=== PATIENT | male | born 1960 | race Caucasian/White ===

== ENCOUNTER → 2020-11-25 | Outpatient (CLI) | payer MEDICARE, BC ==
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
== END | disposition home or self-care (01) ==
LOC: RADXRYALE 14:34
PROVIDERS: ATTEND Physician Assistant Medical
DX: M79.644 Pain in right finger(s) (principal)

== ENCOUNTER → 2021-12-10 | Outpatient (CLI) | payer MEDICARE, BC ==
--- NOTE | 2021-12-11 08:26 | XR ---
EXAMINATION TYPE: XR abdomen 2V DATE OF EXAM: 12/10/2021 COMPARISON: NONE HISTORY: Pain TECHNIQUE: Single supine KUB image of the abdomen is obtained FINDINGS: Small bowel demonstrates no evidence for dilatation or air fluid levels. Gas and fecal material is seen in non-distended colon. No convincing evidence for pneumoperitoneum. No unusual calcifications. The lung bases are clear. The osseous structures are intact. IMPRESSION: 1. Overall nonobstructive bowel gas pattern.
== END | disposition home or self-care (01) ==
LOC: RADXRYALE 16:27
PROVIDERS: ATTEND Family Medicine
DX: R10.84 Generalized abdominal pain (principal)
CPT/HCPCS: 74019

== ENCOUNTER → 2022-01-31 | Outpatient (CLI) | payer MEDICARE ==
--- NOTE | 2022-01-31 19:41 | BD ---
EXAMINATION TYPE: Axial Bone Density DATE OF EXAM: 01/31/2022 COMPARISON: NONE CLINICAL HISTORY: 61 years year old Male. 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 Bone mineral density as measured about the Lumbar spine is: ----- L1-L4(G/cm2): 1.066 T Score Values are as follows: ----- L1: -1.9 ----- L2: -1.1 ----- L3: -0.7 ----- L4: -0.4 ----- L1-L4: -1.0 Bone mineral density BASELINE Bone mineral density about the R hip (g/cm2): 0.838 Bone mineral density about the L hip (g/cm2): 0.790 T Score values are as follows: -----R Neck: -1.4 -----L Neck: -1.8 -----R Total: -1.4 -----L Total: -2.1 Bone mineral density BASELINE FRAX%s: The graph provided illustrates a 13.7 chance for a major osteoporotic fx and a 2.4 chance for the hips probability for fx in 10 years time. IMPRESSION: Osteopenia (T Score between -2.5 and -1). There is slightly increased risk of fracture and the patient may be considered for treatment. Re-Screen 2-5 years. NOTE: T-SCORE=SD OF THE YOUNG ADULT MEAN.
== END | disposition home or self-care (01) ==
LOC: RADBDWWP 15:17
PROVIDERS: ATTEND Family Medicine
DX: M85.89 Other specified disorders of bone density and structure, multiple sites (principal)
CPT/HCPCS: 77080

== ENCOUNTER → 2024-04-04 | Outpatient (CLI) | payer MEDICARE ==
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
== END | disposition home or self-care (01) ==
LOC: RADXRYALE 16:26
PROVIDERS: ATTEND Physician Assistant
DX: R07.1 Chest pain on breathing (principal); R06.02 Shortness of breath
CPT/HCPCS: 71046

== ENCOUNTER → 2024-06-06 | Outpatient (CLI) | payer MEDICARE ==
--- NOTE | 2024-06-06 16:11 | XR ---
EXAMINATION TYPE: XR lumbosacral spine min 4V DATE OF EXAM: 06/06/2024 4:01 PM CLINICAL INDICATION:Male, 64 years old with history of [id number] DDD; [facility] COMPARISON: 04/23/2013 TECHNIQUE: XR lumbosacral spine min 4V - Frontal, lateral , bilateral oblique and coned in L5-S1 late ral views of the spine. FINDINGS: No evidence of any acute osseous pathology. No evidence of loss of vertebral body height i s seen. There is normal scoliotic lumbar alignment of the lumbar vertebral bodies. Mild scattered dis c space narrowing. Multilevel marginal osteophyte formation throughout the visualized spine worse at L4 and L5 on the left. There is facet joint arthropathy throughout the spine. Scattered at least mild neural foraminal stenosis. Atherosclerosis of the arterial vasculature. IMPRESSION: 1. No acute fracture. 2. Progression of disc degeneration with no Moderate multilevel disc degeneration.
== END | disposition home or self-care (01) ==
LOC: RADXRYALE 15:09
PROVIDERS: ATTEND Physician Assistant
DX: M51.37 Other intervertebral disc degeneration, lumbosacral region (principal)
CPT/HCPCS: 72110

== ENCOUNTER → 2025-05-02 | Outpatient (CLI) | payer OTHER, MEDICARE ==
--- NOTE | 2025-05-02 14:27 | US ---
EXAMINATION TYPE: US kidneys/renal and bladder DATE OF EXAM: 05/02/2025 COMPARISON: NONE CLINICAL INDICATION: Male, 65 years old with history of N28.1 CYST OF KIDNEY; Patient denies any othe r signs, symptoms, or relevant history TECHNIQUE: Grayscale imaging of the bilateral kidneys and urinary bladder: FINDINGS: EXAM MEASUREMENTS: Right Kidney: 9.9 x 4.5 x 4.6 cm Left Kidney: 9.6 x 6.5 x 4.7 cm Post Void Residual Volume: NA mL Right Kidney: Simple cyst noted lower lateral pole Left Kidney: wnl, no evidence for hydronephrosis, mass or renal calculus. Bladder: wnl Bilateral Jets seen: Yes Normal Post Void Residual: NA There is no evidence for hydronephrosis at this point in time. No nephrolithiasis is seen. No solid masses are identified. The urinary bladder is anechoic. IMPRESSION: Simple cyst right kidney lower pole [facility], , 05/02/2025 2:25 PM
== END | disposition home or self-care (01) ==
LOC: RADUSWWP 13:59
PROVIDERS: ATTEND Family Medicine
DX: N28.1 Cyst of kidney, acquired (principal)
CPT/HCPCS: 76770

== ENCOUNTER → 2025-05-20 | Outpatient (CLI) | payer OTHER, MEDICARE ==
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
== END | disposition home or self-care (01) ==
LOC: RADMRIMAIN 20:15
PROVIDERS: ATTEND Family Medicine
DX: M51.362 Other intervertebral disc degeneration, lumbar region with discogenic back pain and lower extremity pain (principal); M41.85 Other forms of scoliosis, thoracolumbar region
CPT/HCPCS: 72148

== ENCOUNTER 2025-06-02 00:35 | Inpatient (IN) | payer OTHER, MEDICARE ==
--- NOTE | 2025-06-02 01:14 | ED ---
Abdominal Pain HPI - General Chief Complaint: Abdominal Pain Stated Complaint: Abd pain Time Seen by Provider: 06/02/25 00:48 Source: EMS Mode of arrival: EMS Limitations: no limitations - History of Present Illness Initial Comments: This patient is a 65-year-old man who presents with complaint of having abdominal pain since early in the morning. The patient states that the pain was diffuse, sharp, had a cramping aspect, and was accompanied by nausea. Patient states that he since the evening the pain has been present more in the bilateral lower quadrants. This pain is very similar to pains that he gets related to adhesions. The patient has had a number of lysis of adhesion procedures, and he states that the last of these procedures was about 15 years ago at [facility] in [place]. He states that there is an area of scarring in the bowel that reduces its caliber at 1 point. The patient has not had fever or chills. No chest pain, cough, dyspnea. No change in urination. He states that he did have a bowel movement that was not remarkable earlier in the day. The patient states he has taken a total of 4 of his home [place] today without improvement in the pain. MD Complaint: abdominal pain Onset/Timin -: days(s) Location: diffuse Radiation: none Migration to: LLQ, RLQ Severity: severe Quality: cramping, sharp Consistency: constant Improves With: nothing Worsens With: nothing Associated Symptoms: nausea - Related Data Home Medications Medication Instructions Recorded Confirmed ALPRAZolam [Xanax] 0.5 mg PO TID 06/02/25 06/02/25 Cyclobenzaprine [Flexeril] 10 mg PO TID 06/02/25 06/02/25 HYDROcodone/APAP 10-325MG [[place] 1 tab PO Q4H 06/02/25 06/02/25 10-325] Previous Rx's Medication Instructions Recorded Sennosides-Docusate Sodium 1 tab PO DAILY #30 tablet 06/04/25 [Senokot-S] Allergies Allergy/AdvReac Type Severity Reaction Status Date / Time No Known Allergies Allergy Verified 06/02/25 07:36 Review of Systems ROS Statement: Those systems with pertinent positive or pertinent negative responses have been documented in the HPI. ROS Other: All systems not noted in ROS Statement are negative. Constitutional: Denies: fever, chills, weakness Respiratory: Denies: cough, dyspnea Cardiovascular: Denies: chest pain, palpitations, edema Gastrointestinal: Reports: abdominal pain, nausea. Denies: vomiting, diarrhea, constipation, melena, hematochezia Genitourinary: Denies: dysuria, hematuria Musculoskeletal: Denies: back pain Skin: Denies: rash Neurological: Denies: headache, weakness Past Medical History History of Any Multi-Drug Resistant Organisms: None Reported Past Psychological History: No Psychological Hx Reported Smoking Status: Current every day smoker Past Alcohol Use History: None Reported Past Drug Use History: None Reported - Past Family History Mother Additional Family Medical History / Comment(s): "heart problems" Father Additional Family Medical History / Comment(s): "bad back" and "heart problems". still alove at 97 years old Brother(s) Additional Family Medical History / Comment(s): "heart problems" Sister(s) Family Medical History: Cancer Additional Family Medical History / Comment(s): melanoma General Exam Limitations: no limitations General appearance: alert, in no apparent distress Head exam: Present: atraumatic, normocephalic Eye exam: Present: normal appearance. Absent: scleral icterus, conjunctival injection Neck exam: Present: normal inspection Respiratory exam: Present: normal lung sounds bilaterally. Absent: respiratory distress, wheezes, rales, rhonchi, stridor, accessory muscle use Cardiovascular Exam: Present: regular rate, normal rhythm, normal heart sounds. Absent: systolic murmur, diastolic murmur, rubs, gallop GI/Abdominal exam: Present: soft, tenderness. Absent: distended, guarding, rebound, rigid, mass, pulsatile mass, hernia Extremities exam: Present: normal inspection, normal capillary refill. Absent: pedal edema, calf tenderness Back exam: Present: normal inspection. Absent: CVA tenderness (R), CVA tenderness (L) Neurological exam: Present: alert Skin exam: Present: warm, dry, intact, normal color. Absent: rash Course Vital Signs 06/02/25 06/02/25 06/02/25 00:43 03:31 05:46 Temperature 98.3 F Pulse Rate 94 85 85 Respiratory 18 18 18 Rate Blood Pressure 150/91 147/91 121/79 O2 Sat by Pulse 95 97 96 Oximetry Medical Decision Making - Medical Decision Making This patient is a 65-year-old man arriving to have evaluation of abdominal pain that he states is similar to previous bowel obstruction. On the workup he is found to have a small bowel obstruction. The patient did have good pain relief with analgesic here. Patient will be started on nasogastric tube. Case discussed with the medical service who will admit and the patient to have surgical consultation as well. The patient had CT scan of the abdomen and pelvis that I interpreted as showing developing small bowel obstruction. No free air. Was pt. sent in by a medical professional or institution (, PA, FIRE PREVENTION SPECIALIST, urgent care, hospital, or alf...) When possible be specific @ -[No] Did you speak to anyone other than the patient for history (EMS, parent, family, police, friend...)? What history was obtained from this source @ -[No] Did you review nursing and triage notes (agree or disagree)? Why? @ -[I reviewed and agree with nursing and triage notes] Were old charts reviewed (outside hosp., previous admission, EMS record, old EKG, old radiological studies, urgent care reports/EKG's, alf records)? Report findings @ -[No old charts were reviewed] Differential Diagnosis (chest pain, altered mental status, abdominal pain women, abdominal pain men, vaginal bleeding, weakness, fever, dyspnea, syncope, headache, dizziness, GI bleed, back pain, seizure, CVA, palpatations, mental health, musculoskeletal)? @ -[Differential Abdominal Pain Men: Appendicitis, cholecystitis, diverticulosis, ischemic bowel, pancreatitis, hepatitis, UTI, gastroenteritis, AAA, incarcerated hernia, bowel obstruction, constipation, inflammatory bowel, hepatitis, peptic ulcer disease, splenic infarction, perforated viscus, testicular torsion, this is not meant to be an all-inclusive list EKG interpreted by me (3pts min.). @ -[As above] X-rays interpreted by me (1pt min.). @ -[None done] CT interpreted by me (1pt min.). @ -[I interpreted as above U/S interpreted by me (1pt. min.). @ -[None done] What testing was considered but not performed or refused? (CT, X-rays, U/S, labs)? Why? @ -[None] What meds were considered but not given or refused? Why? @ -[None] Did you discuss the management of the patient with other professionals (professionals i.e. DrGiuseppe, PA, FIRE PREVENTION SPECIALIST, lab, RT, psych nurse, social media project manager, adzing and boring machine operator, teacher, chief creative officer, correctional casework specialist)? Give summary @ -Case discussed with admitting physician and treatment recommendations are incorporated Was smoking cessation discussed for >3mins.? @ -[No] Was critical care preformed (if so, how long)? @ -[No] Were there social determinants of health that impacted care today? How? (Homelessness, low income, unemployed, alcoholism, drug addiction, t ransportation, low edu. Level, literacy, decrease access to med. care, residential, rehab)? @ -[No] Was there de-escalation of care discussed even if they declined (Discuss DNR or withdrawal of care, Hospice)? DNR status @ -[No] What co-morbidities impacted this encounter? (DM, HTN, Smoking, COPD, CAD, C ancer, CVA, ARF, Chemo, Hep., AIDS, mental health diagnosis, sleep apnea, morbid obesity)? @ -[Previous abdominal surgeries with previous bowel obstructions Was patient admitted / discharged? Hospital course, mention meds given and route, prescriptions, significant lab abnormalities, going to OR and other pertinent info. @ -[Patient is 65-year-old man here with abdominal pain concerning for deve loping small bowel obstruction. The patient is started on nasogastric tube, will be admitted for GI rest and have surgical consultation. Undiagnosed new problem with uncertain prognosis? @ -[No] Drug Therapy requiring intensive monitoring for toxicity (Heparin, Nitro, Insulin, Cardizem)? @ -[No] Were any procedures done? @ -[No] Diagnosis/symptom? @ -[Acute abdominal pain Small bowel obstruction Acute, or Chronic, or Acute on Chronic? @ -[Acute Uncomplicated (without systemic symptoms) or Complicated (systemic symptoms)? @ -[Uncomplicated Side effects of treatment? @ -[No] Exacerbation, Progression, or Severe Exacerbation? @ -[No] Poses a threat to life or bodily function? How? (Chest pain, USA, ND, pneumonia, PE, COPD, DKA, ARF, appy, cholecystitis, CVA, Diverticulitis, Homicidal, Suicidal, threat to staff... and all critical care pts) @ -[Yes, requires bowel rest, surgical consultation for further evaluation and treatment All treatments are based on ideal body weight as in ED triage - Lab Data Result diagrams: 06/04/25 05:21 06/04/25 05:21 Lab Results 06/02/25 06/02/25 Range/Units 01:13 01:13 WBC 15.28 H (4.50-10.00) 10*3/uL RBC 5.52 (4.40-5.60) 10*6/uL Hgb 16.8 (13.0-17.0) g/dL Hct 48.5 (39.6-50.0) % MCV 87.9 (80.0-97.0) fL MCH 30.4 (27.0-32.0) pg MCHC 34.6 (32.0-37.0) g/dL Plt Count 255 (140-440) 10*3/uL MPV 10.4 (9.5-12.2) fL Immature Gran % (Auto) 0.2 % Neutrophils % 81.9 % Lymphocytes % 9.9 % Monocytes % 7.6 % Eosinophils % 0.1 % Basophils % 0.3 % Immature Gran # 0.03 (0.00-0.04) 10*3/uL Neutrophils # 12.51 H (1.80-7.70) 10*3/uL Lymphocytes # 1.52 (0.90-5.00) 10*3/uL Monocytes # 1.16 H (0.20-1.00) 10*3/uL Eosinophils # 0.01 L (0.04-0.35) 10*3/uL Basophils # 0.05 (0.00-0.10) 10*3/uL Sodium 137 (137-145) mmol/L Potassium 4.3 (3.5-5.1) mmol/L Chloride 92 L (98-107) mmol/L Carbon Dioxide 32 H (22-30) mmol/L Anion Gap 13 mmol/L BUN 36 H (9-20) mg/dL Creatinine 1.46 H (0.66-1.25) mg/dL Est GFR (CKD-EPI)AfAm 58 (>60 ml/min/1.73 sqM) Est GFR (CKD-EPI)NonAf 51 (>60 ml/min/1.73 sqM) Glucose 117 H (74-99) mg/dL Calcium 10.7 H (8.4-10.2) mg/dL Total Bilirubin 1.0 (0.2-1.3) mg/dL AST 29 (17-59) U/L ALT 21 (4-49) U/L Alkaline Phosphatase 111 (38-126) U/L C-Reactive Protein 1.5 H (<1.0) mg/dL Total Protein 7.9 (6.3-8.2) g/dL Albumin 5.1 H (3.5-5.0) g/dL Amylase 66 (30-110) U/L Lipase 54 (23-300) U/L Disposition Clinical Impression: Small bowel obstruction, Abdominal pain Disposition: ADMITTED IP TO THIS HOSP Condition: Good Is patient prescribed a controlled substance at d/c from ED?: No
[2025-06-02] MEDS: SODIUM CHLORIDE 0.9% 1,000 ML IV ONE (01:20)
[2025-06-02] MEDS: HYDROmorphone 0.5 MG/0.5 ML SYRINGE IVP STA (01:22)
[2025-06-02 01:28] LABS: Basophils # (A) 0.05 10*3/uL (0.00-0.10); Basophils % (A) 0.3 %; Eosinophils # (A) 0.01 10*3/uL (0.04-0.35); Eosinophils % (A) 0.1 %; HCT 48.5 % (39.6-50.0); HGB 16.8 g/dL (13.0-17.0); Lymphocytes # (A) 1.52 10*3/uL (0.90-5.00); Lymphocytes % (A) 9.9 %; MCH 30.4 pg (27.0-32.0); MCHC 34.6 g/dL (32.0-37.0); MCV 87.9 fL (80.0-97.0); Monocytes # (A) 1.16 10*3/uL (0.20-1.00); Monocytes % (A) 7.6 %; Neutrophils # (A) 12.51 10*3/uL (1.80-7.70); Neutrophils % (A) 81.9 %; Platelet Count 255 10*3/uL (140-440); RBC 5.52 10*6/uL (4.40-5.60); RDW 13.2 % (11.5-14.5); WBC 15.28 10*3/uL (4.50-10.00)
[2025-06-02 01:57] LABS: ALT 21 U/L (4-49); AST 29 U/L (17-59); African American GFR (CKD) 58 (>60 ml/min/1.73 sqM); Albumin 5.1 g/dL (3.5-5.0); Alkaline Phosphatase 111 U/L (38-126); Amylase 66 U/L (30-110); Anion Gap 13 mmol/L; Blood Urea Nitrogen 36 mg/dL (9-20); Calcium 10.7 mg/dL (8.4-10.2); Carbon Dioxide 32 mmol/L (22-30); Chloride 92 mmol/L (98-107); Glucose 117 mg/dL (74-99); Lipase 54 U/L (23-300); Non-African American GFR(CKD) 51 (>60 ml/min/1.73 sqM); Potassium 4.3 mmol/L (3.5-5.1); Sodium 137 mmol/L (137-145); Total Protein 7.9 g/dL (6.3-8.2)
[2025-06-02] MEDS ORDERED: HYDROmorphone 0.5 MG/0.5 ML SYRINGE IVP PRN (03:30)
[2025-06-02] MEDS ORDERED: NALOXONE 0.4 MG/ML 1 ML VIAL IV PRN (03:30)
[2025-06-02] MEDS: HYDROmorphone 1 MG/ML 1 ML SYRINGE IVP STA (03:35)
[2025-06-02] MEDS: ONDANSETRON 4 MG/2 ML VIAL IVP PRN (03:38)
[2025-06-02] MEDS: SODIUM CHLORIDE 0.9% 1,000 ML IV SCH (03:39)
--- NOTE | 2025-06-02 04:21 | CT ---
EXAM: CT Abdomen and Pelvis With Intravenous Contrast CLINICAL HISTORY: Abdominal pain, acute, nonlocalized TECHNIQUE: Axial computed tomography images of the abdomen and pelvis with intravenous contrast. CTDI is 12.7 mGy and DLP is 612.2 mGy-cm. This CT exam was performed using one or more of the following dose reduction techniques: automated exposure control, adjustment of the mA and/or kV according to patient size, and/or use of iterative reconstruction technique. COMPARISON: No relevant prior studies available. FINDINGS: Lung bases: Minimal dependent atelectasis. No mass. No consolidation. ABDOMEN: Liver: Unremarkable. No mass. Gallbladder and bile ducts: Unremarkable. No calcified stones. No ductal dilation. Pancreas: Unremarkable. No mass. No ductal dilation. Spleen: Unremarkable. No splenomegaly. Adrenals: Unremarkable. No mass. Kidneys and ureters: No obstructive uropathy. No obstructing renal or ureteral calculi. No hydronephrosis or hydroureter. Stomach and bowel: Fluid distended stomach. Multiple loops of dilated small bowel with air-fluid levels with a transition in the pelvis consistent with a small-bowel obstruction. There is nondilated small bowel in the right pelvis is mildly thickened plascencia. Stool-filled collapsed colon to the rectum. No evidence for diverticulitis. PELVIS: Appendix: No findings to suggest acute appendicitis. Bladder: Partially contracted. No mass. Reproductive: Peripheral scrotal calcification. ABDOMEN and PELVIS: Intraperitoneal space: No free air. No free fluid. Bones/joints: No acute fracture. Dextroscoliosis of the lower lumbar spine with diffuse degenerative changes. Soft tissues: Unremarkable. Vasculature: Atherosclerotic vascular calcifications. No abdominal aortic aneurysm. Lymph nodes: Unremarkable. No enlarged lymph nodes. IMPRESSION: Small-bowel obstruction with a transition in the right lower pelvis. Senescent changes.
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
[2025-06-02] MEDS: HYDROmorphone 1 MG/ML 1 ML SYRINGE IVP PRN (05:43)
[2025-06-02] MEDS: HEPARIN SODIUM,PORCINE 5,000 UNIT/ML 1 ML VIAL SQ SCH (08:59)
[2025-06-02] MEDS: PANTOPRAZOLE 40 MG/10 ML VIAL IV SCH (08:59)
[2025-06-02 09:03] LABS: Glucose,Whole Blood 101 mg/dL (70-110)
[2025-06-02 09:19] LABS: African American GFR (CKD) 78 (>60 ml/min/1.73 sqM); Anion Gap 12 mmol/L; Blood Urea Nitrogen 40 mg/dL (9-20); Calcium 9.5 mg/dL (8.4-10.2); Carbon Dioxide 32 mmol/L (22-30); Chloride 95 mmol/L (98-107); Glucose 112 mg/dL (74-99); Magnesium 2.3 mg/dL (1.6-2.3); Non-African American GFR(CKD) 67 (>60 ml/min/1.73 sqM); Potassium 4.5 mmol/L (3.5-5.1); Sodium 139 mmol/L (137-145)
[2025-06-02 10:48] LABS: Basophils # (A) 0.03 X 10*3/uL (0.00-0.10); Basophils % (A) 0.3 %; Eosinophils # (A) 0.04 X 10*3/uL (0.04-0.35); Eosinophils % (A) 0.4 %; HCT 44.0 % (39.6-50.0); HGB 14.6 g/dL (13.0-17.0); Immature Grans, Automated 0.20 %; Lymphocytes # (A) 1.79 X 10*3/uL (0.90-5.00); Lymphocytes % (A) 18.0 %; MCH 30.0 pg (27.0-32.0); MCHC 33.2 g/dL (32.0-37.0); MCV 90.3 FL (80.0-97.0); Monocytes # (A) 1.28 X 10*3/uL (0.20-1.00); Monocytes % (A) 12.9 %; NRBC Per 100 WBC 0 X 10*3/uL (0.00-0.01); Neutrophils # (A) 6.80 X 10*3/uL (1.80-7.70); Neutrophils % (A) 68.2 %; Platelet Count 219 X 10*3/uL (140-440); RBC 4.87 X 10*6/uL (4.40-5.60); RDW 13.4 % (11.5-14.5); WBC 9.96 X 10*3/uL (4.50-10.00)
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
[2025-06-02] MEDS: ALPRAZolam 0.5 MG TAB PO SCH (16:07)
[2025-06-02] MEDS: ACETAMINOPHEN TAB 325 MG TAB PO PRN (16:34)
--- NOTE | 2025-06-02 18:51 | FL ---
INDICATION: Patient age:Male; 65 years old; Reason for study: SBO; PHH. COMPARISON: CT abdomen and pelvis 06/02/2025 TECHNIQUE: The procedure was explained and patient history elicited. All patient questions were ans wered prior to start of procedure. A supervisor cooler service radiograph of the abdomen was also reviewed. The patient was asked to ingest liquid 16 ounces Gastrografin and incremental frontal abdominal radiographs were then taken until contrast was visualized in the cecum. Radiographs taken: 7 FINDINGS: The supervisor cooler service abdominal radiograph demonstrates gaseous distended small bowel loops measuring up to 3.7 c m. There is gastric distention. Moderate amount of stool present within the right colon. Contrast is demonstrated within the urinary bladder from earlier exam. NG tube demonstrated with distal tip at th e GE junction. Scoliotic curvature of the lumbar spine with prominent degenerative disc disease of th e lower lumbar spine. No abnormal calcifications. Contrast is seen extending from the duodenojejunal junction into the distal colon after 5 hours. The small bowel follows normal distribution and contour without any evidence of extraluminal or intralumi nal irregularity. There is no displacement of bowel loops or extraluminal extravasation of contrast material. Small bowel mucosal folds are felt to be within normal limits. IMPRESSION: 1. Dilated small bowel with contrast seen extending throughout the small bowel into the colon after 5 hours. Findings suggest ileus versus low-grade partial small bowel obstruction. 2. NG tube demonstrated with distal tip at the GE junction. Recommend advancement of 5 cm. [facility], , 06/02/2025 6:49 PM
[2025-06-03 05:49] LABS: Basophils # (A) 0.02 10*3/uL (0.00-0.10); Basophils % (A) 0.3 %; Eosinophils # (A) 0.03 10*3/uL (0.04-0.35); Eosinophils % (A) 0.4 %; HCT 38.7 % (39.6-50.0); Lymphocytes # (A) 1.78 10*3/uL (0.90-5.00); Lymphocytes % (A) 24.9 %; MCH 30.2 pg (27.0-32.0); MCHC 32.6 g/dL (32.0-37.0); MCV 92.8 fL (80.0-97.0); Monocytes # (A) 0.59 10*3/uL (0.20-1.00); Monocytes % (A) 8.3 %; Neutrophils # (A) 4.70 10*3/uL (1.80-7.70); Neutrophils % (A) 65.8 %; Platelet Count 177 10*3/uL (140-440); RBC 4.17 10*6/uL (4.40-5.60); RDW 13.6 % (11.5-14.5); WBC 7.14 10*3/uL (4.50-10.00)
[2025-06-03 05:58] LABS: African American GFR (CKD) >90 (>60 ml/min/1.73 sqM); Anion Gap 8 mmol/L; Blood Urea Nitrogen 34 mg/dL (9-20); Calcium 9.0 mg/dL (8.4-10.2); Carbon Dioxide 27 mmol/L (22-30); Chloride 106 mmol/L (98-107); Glucose 81 mg/dL (74-99); Magnesium 2.2 mg/dL (1.6-2.3); Non-African American GFR(CKD) >90 (>60 ml/min/1.73 sqM); Potassium 4.5 mmol/L (3.5-5.1); Sodium 141 mmol/L (137-145)
[2025-06-03 06:12] LABS: HGB 12.6 g/dL (13.0-17.0)
--- NOTE | 2025-06-03 12:37 | P.PN ---
Subjective Progress Note Date: 06/03/25 SURGICAL PROGRESS NOTE CHIEF COMPLAINT: SBO HISTORY OF PRESENT ILLNESS: Patient underwent small bowel follow-through yesterday. Results reported dilated small bowel with contrast seen extending throughout the small bowel into the colon. Findings suggest ileus versus low- grade partial small bowel obstruction. NG tube wall with distal tip at the GE junction. NG tube was advanced 5 cm. Patient had 550 mL darkish output through the NG tube last night. Patient has had multiple bowel movements. He is reporting improvement in his abdominal pain. Abdomen is less distended. Overall feeling better today. Afebrile. WBC 7.14 Hgb 12.6 PHYSICAL EXAM: VITAL SIGNS: Reviewed. GENERAL: Well-developed in no acute distress. HEENT: No sclera icterus. Extraocular movements grossly intact. Moist buccal mucosa. Head is atraumatic, normocephalic. ABDOMEN: Soft. Mildly distended. Minimal discomfort with palpation lower abdomen. NEUROLOGIC: Alert and oriented. Cranial nerves II through XII grossly intact. ASSESSMENT: 1. Small bowel obstruction resolving 2. History of non-Hodgkin lymphoma with bowel resection and radiation treatment to abdomen 3. Prior history of lysis of adhesions and last lysis of adhesion was about 15 years ago PLAN: - Clamp NG tube. Have patient ambulate. Will trial clear liquids. - Continue to monitor Physician Keypunch Operators Supervisor note has been reviewed by physician. Signing provider agrees with the documented findings, assessment, and plan of care. Objective - Vital Signs Vital signs: Vital Signs Temp 98.4 F 06/03/25 07:54 Pulse 60 06/03/25 10:14 Resp 18 06/03/25 10:14 BP 158/73 06/03/25 07:54 Pulse Ox 96 06/03/25 07:54 FiO2 Intake & Output 06/02/25 06/03/25 06/03/25 18:59 06:59 18:59 Output Total 450 750 Balance -450 -750 Weight 67.132 kg Output: Gastric Drainage 450 550 Emesis 200 Other: Voiding Method Toilet Toilet Toilet # Voids 1 2 # Bowel Movements 1 - Labs CBC & Chem 7: 06/03/25 04:28 06/03/25 04:28 Labs: Abnormal Lab Results - Last 24 Hours (Table) 06/03/25 06/03/25 Range/Units 04:28 04:28 RBC 4.17 L (4.40-5.60) 10*6/uL Hgb 12.6 L D (13.0-17.0) g/dL Hct 38.7 L (39.6-50.0) % Eosinophils # 0.03 L (0.04-0.35) 10*3/uL BUN 34 H (9-20) mg/dL
--- NOTE | 2025-06-03 15:44 | P.PN ---
Subjective Progress Note Date: 06/03/25 Hospital Course: Patient is a 65M with PMHx of Non-Hodgkin's lymphoma, and abdominal adhesions who is admitted for small bowel obstruction and SULTANA. ED vitals were significant for T 98.3, HR 94, RR 18, BP 150/91, 95% on RA. Significant ED labs include WBC 15.28, Hgb 16.8, sodium 137, potassium 4.3, chloride 92, bicarb 32, BUN 36, creatinine 1.46, CRP 1.5. CT abdomen/pelvis showed small bowel obstruction with a transition in the right lower pelvis. Patient was admitted to the inpatient team. An NG tube was was placed and patient was initially NPO. General surgery was consulted and recommended bowel rest and slow progression of diet. Subjective: Patient seen and examined at bedside. Overnight patient's oxygen saturations dropped to the 80s and was placed on 2 L nasal cannula. He states he has no shortness of breath or cough this morning and will check his oxygen saturation at home and notes will range from 88 to 100%. He also reports his abdominal pain is better than prior to being admitted. He states he did have multiple bowel movements yesterday and last night. He denies chest pain, headache, shortness of breath, dysuria. Pertinent positives and negatives as discussed above, a complete review of systems was performed and all other systems are negative. Vitals: Signs Reviewed Physical Exam: General: nontoxic, no distress, appears at stated age Derm: warm, dry, intact Head: atraumatic, normocephalic, symmetric Eyes: EOMI, anicteric sclera Mouth: no lip lesion, mucus membranes moist Cardiovascular: S1 S2 reg, no murmur, rubs, or gallops Lungs: CTA bilateral, no rhonchi, no rales, no accessory muscle use Abdominal: soft, slightly distended, no tenderness to palpation, no guarding Extremities: No gross muscle atrophy, no edema Neuro: Alert, Oriented, CNII-XII grossly intact, gait normal Psych: Well appearing, appropriate affect Data Received Today: Pertinent Labs: WBC 7.14, hemoglobin 12.6, sodium 141, potassium 4.5, BUN 34, creatinine 0.86 Imaging: Gastrografin small bowel shows dilated small bowel with contrast seen extending throughout small bowel and into the colon after 5 hours. Findings suggest ileus versus low-grade partial small bowel obstruction. Assessment and Plan: Ileus versus partial small bowel obstruction History of abdominal adhesions - At home, pt does take opioid medication (Otto 10-325) - Continue Zofran 4 mg IV every 8 hours - Continue Protonix 40 mg daily - General Surgery consulted, NG tube was clamped today and patient started on clear liquid diet. - Will advance diet as tolerated - Pain control: Dilaudid 0.5 mg every 3 hours and Dilaudid 1 mg every 3 hours Resolved: SULTANA -likely prerenal, resolved - Improved with fluids - Will continue fluids NS 130 cc/h and plan to d/c tomorrow as diet advances. F: NS 130 cc/h E: Monitor and replenish as needed N: Clear liquid diet A: Independently ambulating DVT ppx: Heparin 5000 units every 8 hours Code status: Full code Anticipated discharge place: Home Anticipated discharge time: 24 to 48 hours Dima Roa DO PGY-1 IM Dictation was produced using [employer] dictation software. please excuse any grammatical, word or spelling errors. I have seen and evaluated the patient today. Discussed with the resident and agree with the residents finding and plan as documented in the resident's note. Changes highlighted in blue font. Objective - Vital Signs Vital signs: Vital Signs Temp 97.8 F 06/03/25 13:47 Pulse 70 06/03/25 13:47 Resp 18 06/03/25 13:47 BP 155/98 06/03/25 13:47 Pulse Ox 95 06/03/25 13:47 FiO2 Intake & Output 06/02/25 06/03/25 06/03/25 18:59 06:59 18:59 Intake Total 480 Output Total 450 750 Balance -450 -750 480 Weight 67.132 kg Intake: Oral 480 Output: Gastric Drainage 450 550 Emesis 200 Other: Voiding Method Toilet Toilet Toilet # Voids 1 2 # Bowel Movements 1 - Labs CBC & Chem 7: 06/03/25 04:28 06/03/25 04:28 Labs: Abnormal Lab Results - Last 24 Hours (Table) 06/03/25 06/03/25 Range/Units 04:28 04:28 RBC 4.17 L (4.40-5.60) 10*6/uL Hgb 12.6 L D (13.0-17.0) g/dL Hct 38.7 L (39.6-50.0) % Eosinophils # 0.03 L (0.04-0.35) 10*3/uL BUN 34 H (9-20) mg/dL
[2025-06-04 06:14] LABS: Basophils # (A) 0.02 10*3/uL (0.00-0.10); Basophils % (A) 0.2 %; Eosinophils # (A) 0.14 10*3/uL (0.04-0.35); Eosinophils % (A) 1.7 %; HCT 36.1 % (39.6-50.0); HGB 12.1 g/dL (13.0-17.0); Lymphocytes # (A) 2.48 10*3/uL (0.90-5.00); Lymphocytes % (A) 29.2 %; MCH 30.6 pg (27.0-32.0); MCHC 33.5 g/dL (32.0-37.0); MCV 91.4 fL (80.0-97.0); Monocytes # (A) 0.68 10*3/uL (0.20-1.00); Monocytes % (A) 8.0 %; Neutrophils # (A) 5.13 10*3/uL (1.80-7.70); Neutrophils % (A) 60.5 %; Platelet Count 156 10*3/uL (140-440); RBC 3.95 10*6/uL (4.40-5.60); RDW 13.2 % (11.5-14.5); WBC 8.48 10*3/uL (4.50-10.00)
[2025-06-04 06:31] LABS: African American GFR (CKD) >90 (>60 ml/min/1.73 sqM); Anion Gap 6 mmol/L; Blood Urea Nitrogen 12 mg/dL (9-20); Calcium 8.7 mg/dL (8.4-10.2); Carbon Dioxide 28 mmol/L (22-30); Chloride 103 mmol/L (98-107); Glucose 92 mg/dL (74-99); Magnesium 1.6 mg/dL (1.6-2.3); Non-African American GFR(CKD) >90 (>60 ml/min/1.73 sqM); Potassium 3.9 mmol/L (3.5-5.1); Sodium 137 mmol/L (137-145)
[2025-06-04] MEDS: ACETAMINOPHEN TAB 325 MG TAB PO SCH (08:56)
--- NOTE | 2025-06-04 11:29 | P.PN ---
Subjective Progress Note Date: 06/04/25 Hospital Course: Patient is a 65M with PMHx of Non-Hodgkin's lymphoma, and abdominal adhesions who is admitted for small bowel obstruction and SULTANA. ED vitals were significant for T 98.3, HR 94, RR 18, BP 150/91, 95% on RA. Significant ED labs include WBC 15.28, Hgb 16.8, sodium 137, potassium 4.3, chloride 92, bicarb 32, BUN 36, creatinine 1.46, CRP 1.5. CT abdomen/pelvis showed small bowel obstruction with a transition in the right lower pelvis. Patient was admitted to the inpatient team. An NG tube was was placed and patient was initially NPO. General surgery was consulted and recommended bowel rest and slow progression of diet. While admitted, patient was able to tolerate clear liquid diet and diet was further advanced. Subjective: Patient seen and examined at bedside. No acute events overnight. This morning patient states he is doing well. He states he was able to tolerate the clear liquid diet yesterday without any nausea or vomiting. He is still having bowel movements and notes his last BM was less watery and more formed. He also notes his abdominal pain is improving. He denies chest pain, shortness of breath, fevers, chills, nausea, vomiting. Pertinent positives and negatives as discussed above, a complete review of systems was performed and all other systems are negative. Vitals: Signs Reviewed Physical Exam: General: nontoxic, no distress, appears at stated age Derm: warm, dry, intact Head: atraumatic, normocephalic, symmetric Eyes: EOMI, anicteric sclera Mouth: no lip lesion, mucus membranes moist Cardiovascular: S1 S2 reg, no murmur, rubs, or gallops Lungs: CTA bilateral, no rhonchi, no rales, no accessory muscle use Abdominal: soft, non-tender to palpation Extremities: no gross muscle atrophy, no edema Neuro: Alert, Oriented, CNII-XII grossly intact, gait normal Psych: well appearing, appropriate affect Data Received Today: Pertinent Labs: WBC 8.48, hemoglobin 12.1, sodium 137, potassium 3.9, calcium 8.7, magnesium 1.6 Imaging: None today Assessment and Plan: Ileus versus partial small bowel obstruction History of abdominal adhesions - At home, pt does take opioid medication ([place] 10-325) - NG tube was removed - Continue Zofran 4 mg IV every 8 hours - Continue Protonix 40 mg daily - General Surgery consulted, recs appreciated - Patient tolerated clear liquid diet, advance to full liquid diet - Continue Dilaudid 1 mg every 3 hours - Discontinued Dilaudid 0.5 mg every 3 hours - Changed Tylenol 650 mg every 6 hours as needed to scheduled Resolved: non-oliguric SULTANA, pre-renal F: D/C fluids E: Monitor and replenish as needed N: Full liquid diet A: Independently ambulating DVT ppx: Heparin 5000 units every 8 hour Code status: No code Anticipated discharge place: Home Anticipated discharge time: 24 to 48 hours Dima Roa DO PGY-1 IM Dictation was produced using [employer] dictation software. please excuse any grammatical, word or spelling errors. I have seen and evaluated the patient today. Discussed with the resident and agree with the residents finding and plan as documented in the resident's note. Changes highlighted in blue font. Objective - Vital Signs Vital signs: Vital Signs Temp 98 F 06/04/25 07:48 Pulse 58 L 06/04/25 07:48 Resp 16 06/04/25 07:48 BP 164/77 06/04/25 07:48 Pulse Ox 97 06/04/25 07:48 FiO2 Intake & Output 06/03/25 06/04/25 06/04/25 18:59 06:59 18:59 Intake Total 1050 600 Output Total 100 Balance 950 600 Intake: Oral 1050 Other 600 Output: Gastric Drainage 100 Other: Voiding Method Toilet Toilet # Voids 2 2 - Labs CBC & Chem 7: 06/04/25 05:21 06/04/25 05:21 Labs: Abnormal Lab Results - Last 24 Hours (Table) 06/04/25 Range/Units 05:21 RBC 3.95 L (4.40-5.60) 10*6/uL Hgb 12.1 L (13.0-17.0) g/dL Hct 36.1 L (39.6-50.0) %
[2025-06-04 12:59] VITALS: RESP 18
[2025-06-04 13:39] VITALS: BP 169/89; PULSE 69; TEMP 97.3
--- NOTE | 2025-06-04 14:43 | P.PN ---
Subjective Progress Note Date: 06/04/25 SURGICAL PROGRESS NOTE CHIEF COMPLAINT: SBO HISTORY OF PRESENT ILLNESS: Patient reports improvement in abdominal pain. He does have some mild discomfort but feeling much better. He is having bowel movements. Tolerated clear liquids. NG tube has remained clamped. Afebrile. WBC 8.48 patient underwent small bowel follow-through results reported dilated small bowel with contrast seen extending throughout the small bowel into the colon. Findings suggest ileus versus low-grade partial small bowel obstruction. PHYSICAL EXAM: VITAL SIGNS: Reviewed. GENERAL: Well-developed in no acute distress. HEENT: No sclera icterus. Extraocular movements grossly intact. Moist buccal mucosa. Head is atraumatic, normocephalic. ABDOMEN: Soft. Mildly distended. Minimal discomfort with palpation lower abdomen. NEUROLOGIC: Alert and oriented. Cranial nerves II through XII grossly intact. ASSESSMENT: 1. Small bowel obstruction resolving 2. History of non-Hodgkin lymphoma with bowel resection and radiation treatment to abdomen 3. Prior history of lysis of adhesions and last lysis of adhesion was about 15 years ago PLAN: - NG tube discontinued - Patient given full liquids for lunch. Patient tolerated full liquid diet. - Patient can be discharged from surgical standpoint. Recommend continuing a full liquid diet for the next week and then advance as tolerated. - Recommend staying on a good bowel regimen. Physician Machine Filler Shredder note has been reviewed by physician. Signing provider agrees with the documented findings, assessment, and plan of care. Objective - Vital Signs Vital signs: Vital Signs Temp 98 F 06/04/25 07:48 Pulse 58 L 06/04/25 07:48 Resp 16 06/04/25 07:48 BP 164/77 06/04/25 07:48 Pulse Ox 97 06/04/25 07:48 FiO2 Intake & Output 06/03/25 06/04/25 06/04/25 18:59 06:59 18:59 Intake Total 1050 600 Output Total 100 Balance 950 600 Intake: Oral 1050 Other 600 Output: Gastric Drainage 100 Other: Voiding Method Toilet Toilet Toilet # Voids 2 2 - Labs CBC & Chem 7: 06/04/25 05:21 06/04/25 05:21 Labs: Abnormal Lab Results - Last 24 Hours (Table) 06/04/25 Range/Units 05:21 RBC 3.95 L (4.40-5.60) 10*6/uL Hgb 12.1 L (13.0-17.0) g/dL Hct 36.1 L (39.6-50.0) %
--- NOTE | 2025-06-04 15:45 | P.DS ---
Providers Date of admission: 06/02/25 03:30 Expected date of discharge: 06/04/25 Attending physician: Omaira Miller MD Consults: 06/02/25 03:30 Consult Physician Routine Consulting Provider: Eloy Langston Consult Reason/Comments: Abdominal pain. Small bowel obstruction. Do you want consulting provider notified?: Yes Primary care physician: J Carlos Mai Hospital Course: Discharge Diagnosis: Ileus versus partial small bowel obstruction History of abdominal adhesions Nonoliguric SULTANA likely prerenal, resolved Non-Hodgkin's lymphoma History of abdominal adhesions Hospital Course: Patient is a 65M with PMHx of Non-Hodgkin's lymphoma, and abdominal adhesions who is admitted for small bowel obstruction and SULTANA. ED vitals were significant for T 98.3, HR 94, RR 18, BP 150/91, 95% on RA. Significant ED labs include WBC 15.28, Hgb 16.8, sodium 137, potassium 4.3, chloride 92, bicarb 32, BUN 36, creatinine 1.46, CRP 1.5. CT abdomen/pelvis showed small bowel obstruction with a transition in the right lower pelvis. Patient was admitted to the inpatient team for further workup on abdominal pain. An NG tube was was placed and patient was initially NPO. General surgery was consulted and recommended bowel rest and slow progression of diet. While admitted, patient was able to tolerate clear liquid diet and diet was further advanced to full liquid. Patient being discharged on bowel regimen. He is also to remain on full liquid diet for 1 week. He is to follow-up with his PCP and general surgery. Patient is h emodynamically stable and patient being discharged home. Patient seen and examined at bedside. Vital signs reviewed and stable. Physical examination: Vital signs reviewed General: non toxic, no distress, appears at stated age, normal weight Derm: no unusual rashes/lesions, warm Head: atraumatic, normocephalic, symmetric Eyes: EOMI, anicteric sclera, pupils equal round reactive to light ENT: Nose and ears atraumatic Neck: No cervical lymphadenopathy, trachea midline, supple Mouth: no lip lesion, mucus membranes moist Cardiovascular: S1S2 reg, no murmur, positive dorsalis pedis pulse bilateral, no edema Lungs: CTA bilateral, no rhonchi, no rales, no accessory muscle use Abdominal: soft, nontender to palpation, no guarding Ext: muscle strength 5 out of 5 in all 4 extremities grossly, no gross muscle atrophy Neuro: CN II-XI grossly intact, no gross focal neuro deficits Psych: Alert, oriented to person, place, and time A total of greater than 30 minutes of time were spent preparing this complex discharge summary. Patient was discharge on June 04, 2025 14:50. Schuyler Aggarwal MD PGY-2 IM Dictation was produced using [employer] dictation software. please excuse any grammatical, word or spelling errors. I have seen and evaluated the patient today. Discussed with the resident and agree with the residents finding and plan as documented in the resident's note. Changes highlighted in blue font. Patient Condition at Discharge: Fair Plan - Discharge Summary Discharge Rx Participant: No New Discharge Prescriptions: New Sennosides-Docusate Sodium [Senokot-S] 1 tab PO DAILY #30 tablet Continue Cyclobenzaprine [Flexeril] 10 mg PO TID ALPRAZolam [Xanax] 0.5 mg PO TID HYDROcodone/APAP 10-325MG [[place] 10-325] 1 tab PO Q4H Discharge Medication List ALPRAZolam [Xanax] 0.5 mg PO TID 06/02/25 [History] Cyclobenzaprine [Flexeril] 10 mg PO TID 06/02/25 [History] HYDROcodone/APAP 10-325MG [[place] 10-325] 1 tab PO Q4H 06/02/25 [History] Sennosides-Docusate Sodium [Senokot-S] 1 tab PO DAILY #30 tablet 06/04/25 [Rx] Follow up Appointment(s)/Referral(s): Eloy Langston DO [Doctor of Osteopathic Medicine] - 1 Week J Carlos Mai DO [Primary Care Provider] - 06/12/25 1:20 pm Patient Instructions/Handouts: Bowel Obstruction (DC), Full Liquid Diet (DC) Activity/Diet/Wound Care/Special Instructions: Patient to remain on full liquid diet for 1 week. Please follow up with PCP and general surgery.
== END 2025-06-04 15:40 | disposition home or self-care (01) | DRG 389 ==
LOC: EC 00:35 → 5NMEDONC 03:30 → UNDODISIN 06-04 14:56
PROVIDERS: ADMIT Internal Medicine; ATTEND Internal Medicine
PROC: 0D9670Z Drainage of Stomach with Drainage Device, Via Natural or Artificial Opening (ICD-10-PCS; principal; 2025-06-02)
DX: K56.51 Intestinal adhesions [bands], with partial obstruction (principal); C85.90 Non-Hodgkin lymphoma, unspecified, unspecified site; N17.9 Acute kidney failure, unspecified; I10 Essential (primary) hypertension; G89.29 Other chronic pain; F41.9 Anxiety disorder, unspecified; F17.200 Nicotine dependence, unspecified, uncomplicated; V89.2XXS Person injured in unspecified motor-vehicle accident, traffic, sequela; I25.10 Atherosclerotic heart disease of native coronary artery without angina pectoris; Z79.899 Other long term (current) drug therapy; Z85.820 Personal history of malignant melanoma of skin; Z90.49 Acquired absence of other specified parts of digestive tract; Z79.891 Long term (current) use of opiate analgesic; Z92.3 Personal history of irradiation; Z28.310 Unvaccinated for COVID-19
CPT/HCPCS: 36415; 74177; 74250; 80048; 80053; 82150; 83605; 83690; 83735; 85025; 86140; 96361; 96374; 96375; 96376; 99285